=== PATIENT | male | born 1990 | race Caucasian/White ===

== ENCOUNTER 2024-08-16 13:28 | Emergency (ER) | payer OTHER, SELFPAY ==
[2024-08-16 13:29] VITALS: BP 140/90
--- NOTE | 2024-08-16 14:24 | ED.GENMED ---
History of Present Illness
General
Chief Complaint: Skin Surface Trauma
Source: patient
Exam Limitations: none
Time Seen by Provider: 08/16/24 13:52
Nursing documentation reviewed up to this point in time: agreed with
History of Present Illness
History of Present Illness:
34 y/o M righ thand dominant
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
has a wound that has partially closed but was glancing and nearly through to the other side
bleedin gis controlled now
has small abrasion thumb which is not bleeding
tetanus originally thoguht to be unknown but pt recalls dog bite in 2020 he got tetanus
Past History
Past History
ED Past Medical History: None
ED Past Surgical History: None
Social History
Tobacco: Non-smoker
Review of Systems
Review of Systems
Allergies reviewed?: Yes
All Other Systems: Not applicable
Phy Exam
Physical Exam
Physical Exam:
GENERAL: Alert , in no apparent distress, comfortable at rest
HEAD: NCAT
CV: < 2 sec cap refill
NEUROLOGICAL: Alert and oriented, no focal neuro deficits, , 5/5 strength, sensation intact, ambulation slight limp right leg
SKIN: Warm and dry, arc shaped laceration to left index finger radial aspect
MUSCULOSKELETAL: mild STS right ankle with tenderness to malleolus medially; pain with inversion and eversion;
no tenderness at the base of the 5th metatarsal, no other foot tenderness
no knee/prox tib/fib tenderness, full painless ROM;
PSYCH: Normal and appropriate interaction.
Course
Vital Signs
Initial and Last Documented VS:
Initial Vital Signs
Temp Pulse Resp BP Pulse Ox
36.6 C 73 16 140/90 100
08/16/24 13:29 08/16/24 13:29 08/16/24 13:29 08/16/24 13:29 08/16/24 13:29
Last Documented Vital Signs
Temp Pulse Resp BP Pulse Ox
36.6 C 73 16 140/90 100
08/16/24 13:29 08/16/24 13:29 08/16/24 13:29 08/16/24 13:29 08/16/24 13:29
ED Attending Note
-
Portions of this chart may have been created with voice recognition software.� Occasional wrong word or��sound alike� substitutions may have occurred due to the inherent limitations of voice recognition software.
Discharge Plan
Departure
Referrals:
NONE,* [Family Provider] -
Interventions
Interventions:
*Risk Screen - Suicide Last Done: 08/16/24 13:29
*General Assessment Last Done: 08/16/24 13:29
*Neglect/Abuse Screening Last Done: 08/16/24 13:29
*ED COVID-19 Vaccine History Last Done: 08/16/24 13:29
ED-Skin Assessment Last Done: 08/16/24 14:09
Discharge Date and Time
Print Language: THAI
== END 2024-08-16 14:37 | disposition home or self-care (01) ==
LOC: EMR 13:28
PROVIDERS: EMERGENCY PHYSICIAN Emergency Medicine
DX: S61.251A Open bite of left index finger without damage to nail, initial encounter (principal); W54.0XXA Bitten by dog, initial encounter
CPT/HCPCS: 99282; 12001